=== PATIENT | female | born 1995 | race Caucasian/White ===

== ENCOUNTER → 2017-10-24 | Outpatient (CLI) | payer MEDICAID | LOC: HPND 13:03 | PROVIDERS: ATTEND Obstetrics & Gynecology | DX: O26.841 Uterine size-date discrepancy, first trimester (principal) | CPT/HCPCS: 76801 ==

== ENCOUNTER → 2017-12-11 | Outpatient (CLI) | payer MEDICAID | LOC: HPND 08:03 | PROVIDERS: ATTEND Obstetrics & Gynecology | DX: O35.2XX0 Maternal care for (suspected) hereditary disease in fetus, not applicable or unspecified (principal) | CPT/HCPCS: 76811 ==

== ENCOUNTER → 2018-01-15 | Outpatient (CLI) | payer MEDICAID | LOC: HPND 08:02 | PROVIDERS: ATTEND Obstetrics & Gynecology | DX: O35.2XX0 Maternal care for (suspected) hereditary disease in fetus, not applicable or unspecified (principal) | CPT/HCPCS: 76816 ==